=== PATIENT | male | born 1960 | race Caucasian/White ===

== ENCOUNTER → 2017-04-28 | Outpatient (CLI) | payer BC ==
--- NOTE | 2017-04-28 13:51 | XR ---
Abdomen HISTORY: Cystitis with hematuria, dysuria, pain Frontal view of the abdomen submitted, no comparisons Patient is status post right hip arthroplasty. Left hip shows marked osteoarthritic change. Bone mine ralization is reduced. Lung bases are not included in the exam. No pneumoperitoneum or bowel obstruct ion evident. Possible vascular calcifications noted within the pelvis. IMPRESSION: Nonobstructive bowel gas pattern. Additional findings above.
== END | disposition home or self-care (01) ==
LOC: RADXRYALE 10:34
PROVIDERS: ATTEND Physician Assistant Medical
DX: N30.01 Acute cystitis with hematuria (principal); R30.0 Dysuria
CPT/HCPCS: 74000; 87086

== ENCOUNTER → 2018-12-29 | Outpatient (CLI) | payer OTHER ==
--- NOTE | 2018-12-29 13:58 | XR ---
Cervical spine HISTORY: Neck pain 8 views of the cervical spine Prevertebral soft tissues are within normal limits. Cervical vertebral bodies show preserved height a nd alignment. Loss of normal cervical lordosis. There is some ankylosis of apophyseal joints, osteope razia and multilevel syndesmophyte formation suggestive of underlying ankylosing spondylitis. Odontoid view, C7-T1 visualization is limited. Oblique images not optimal to evaluate for foraminal encroachme nt on the left, there is foraminal encroachment on the right at C4-5. IMPRESSION: Correlate for possible ankylosing spondylitis. Suspect underlying foraminal encroachment.
--- NOTE | 2018-12-29 14:00 | XR ---
Lumbosacral spine HISTORY: Low back pain 5 views of the lumbosacral spine No comparisons There is no evident spondylolysis or spondylolisthesis. There is multilevel spondylosis. Loss of disc height present L5-S1 with associated vacuum phenomenon. Vascular calcifications are noted incidental ly. Sclerosis noted in the posterior elements. Bone mineralization is mildly reduced. IMPRESSION: Degenerative disc disease, facet arthropathy. Osteopenia.
== END | disposition home or self-care (01) ==
LOC: RADXRWHC 12:22
PROVIDERS: ATTEND Family Medicine
DX: M51.36 Other intervertebral disc degeneration, lumbar region (principal); M46.96 Unspecified inflammatory spondylopathy, lumbar region; M85.88 Other specified disorders of bone density and structure, other site; M54.2 Cervicalgia
CPT/HCPCS: 72050; 72110

== ENCOUNTER → 2021-03-29 | Outpatient (CLI) | payer OTHER ==
--- NOTE | 2021-03-30 10:45 | XR ---
EXAMINATION TYPE: XR Hip Complete LT DATE OF EXAM: 03/30/2021 COMPARISON: NONE HISTORY: Pain TECHNIQUE: 2 views submitted FINDINGS: There is no evidence of erosive change or acute fracture. Diffuse osteopenia. Postsurgical change lef t hip with moderate to severe arthropathy of the hip joint. Degenerative change lower lumbar spine. IMPRESSION: 1. Diffuse osteopenia with severe arthropathy of the left hip. 2. Postsurgical change left femur.
--- NOTE | 2021-03-30 10:46 | XR ---
EXAMINATION TYPE: XR pelvis AP view DATE OF EXAM: 03/30/2021 COMPARISON: NONE HISTORY: Pain The osseous structures are intact and the joint spaces are preserved. No acute fracture is seen. Vi sualized bowel gas pattern is nonspecific. Postsurgical change of bilateral hip with severe arthropa thy left hip joint. Diffuse osteopenia. Mild arthropathy of the SI joints. IMPRESSION: 1. Postsurgical changes. 2. Diffuse osteopenia. 3. Severe arthropathy of the left hip joint.
== END | disposition home or self-care (01) ==
LOC: RADXRYALE 14:56
PROVIDERS: ATTEND Physician Assistant
DX: M16.12 Unilateral primary osteoarthritis, left hip (principal); M85.852 Other specified disorders of bone density and structure, left thigh; Z98.890 Other specified postprocedural states
CPT/HCPCS: 72170; 73502

== ENCOUNTER → 2023-08-05 | Outpatient (CLI) | payer OTHER ==
--- NOTE | 2023-08-05 13:03 | CA ---
Transthoracic Echo Report Name: Yves Johnston Age: 63 Gender: M : 1960 Exam Date: 08/05/2023 10:42 Exam Location: [place] [facility] Ht (in): 70 Wt (lb): 165 Ordering Physician: Jimenez Lee DO Attending/Referring Phys: Amy Munguai PAC Body Fitter Tiffany Mathews RDCS Procedure CPT: Indications: R07.9 CHEST PAIN I10 HTN Cardiac Hx: Technical Quality: Fair Contrast 1: Total Dose (mL): Contrast 2: Total Dose (mL): MEASUREMENTS (Male / Female) Normal Values 2D ECHO LV Diastolic Diameter PLAX 4.2 cm 4.2 - 5.9 / 3.9 - 5.3 cm LV Systolic Diameter PLAX 2.7 cm IVS Diastolic Thickness 1.6 cm 0.6 - 1.0 / 0.6 - 0.9 cm LVPW Diastolic Thickness 1.4 cm 0.6 - 1.0 / 0.6 - 0.9 cm LV Relative Wall Thickness 0.7 RV Internal Dim ED PLAX 3.2 cm LA Systolic Diameter LX 3.4 cm 3.0 - 4.0 / 2.7 - 3.8 cm LA Volume 59.0 cm??? 18 - 58 / 22 - 52 cm??? LA Volume Index 30.6 cm???/m??? 16 - 28 cm???/m??? M-MODE Aortic Root Diameter MM 3.3 cm MV E Point Septal Separation 0.5 cm AV Cusp Separation MM 2.3 cm DOPPLER AV Peak Velocity 129.3 cm/s AV Peak Gradient 6.7 mmHg MV Area PHT 2.8 cm??? Mitral E Point Velocity 84.1 cm/s Mitral A Point Velocity 95.7 cm/s Mitral E to A Ratio 0.9 MV Deceleration Time 269.1 ms MV E' Velocity 5.9 cm/s Mitral E to MV E' Ratio 14.3 FINDINGS Left Ventricle Left ventricular ejection fraction is estimated at 60-65 %. Left ventricular cavity size normal. Moderate concentric left ventricular hypertrophy. Right Ventricle Normal right ventricular size. Unable to estimate the right ventricular systolic pressure. Right Atrium Normal right atrial size. Left Atrium Mildly increased left atrial volume. Mitral Valve Structurally normal mitral valve. No mitral stenosis. No evidence for mitral valve prolapse. Aortic Valve Trileaflet aortic valve. No aortic valve stenosis or regurgitation. Tricuspid Valve Structurally normal tricuspid valve. No tricuspid regurgitation. Pulmonic Valve Structurally normal pulmonic valve. Mild pulmonic regurgitation. Pericardium No pericardial effusion Aorta Normal size aortic root and proximal ascending aorta. CONCLUSIONS Left ventricular ejection fraction 60-65% Moderate concentric left ventricular hypertrophy No mitral regurgitation Previewed by: Dr. Benjamin Carr DO (Electronically Signed) Final Date: 05 August 2023 13:03
--- NOTE | 2023-08-05 13:48 | CA ---
Stress Echo Report Yves Johnston Age: 63 Gender: M : 1960 Exam Date: 08/05/2023 11:46 Exam Location: [place] [facility] Ht (in): 70 Wt (lb): 165 Ordering Physician: Jimenez Lee DO Referring Physician: Amy Munguia PAC Delivery Tech: Tiffany Mathews RDCS Technologist Procedure CPT: Indication: R07.9 CHEST PAIN I10 HTN ICD-9 Codes: Rhythm: Patient History: CP, CRUZ, PALP, HTN, FAMILY HX Cardiac Medications: PERCOCET, TAMLOSIN, DILUXAPINE, LISINOPRIL, AMLODIPINE, XANAX Medications in past 24 hours: Contrast: N/A Stress Results Protocol: Khris Total dose(mL): Exercise Duration (min:sec): 5:[address] Depression (mm): Angina Score: Stone Score: METS: 7.0 Resting HR: 93 Resting BP: 132 / 52 Peak HR: 157 Peak BP: 190 / 47 Max Predicted HR: 158 99 % Max Predicted HR Target HR: 134 Double Product: 10610 Stress Summary: BP Response: Reason for Termination: Maximal effort/unable to continue, Reached target heart rate or work-load Cardiac Symptoms: ECG Analysis Resting ECG: Stress ECG: Arrhythmia: Echo Analysis Resting Echo: Peak Echo Analysis: MEASUREMENTS (Male/Female) Normal Values CONCLUSIONS Stress test initially ordered as a stress EKG however abnormal baseline EKG and therefore recommended changing to stress echo. Patient underwent exercise stress echo with a Khris protocol treadmill stress test. Patient exercised into Stage 2 for a total of minutes and 5 seconds reaching a total of 7.0 METS. Patient's maximum heart rate was and 57 which represented 99% age-predicted maximum heart rate. Stress EKG portion: At baseline patient's EKG showed normal sinus rhythm, normal axis, LVH with strain pattern with diffuse T-wave inversions V3 through V6, 1 and aVL. At peak exercise, EKG showed no significant change from baseline. Stress echo portion: 2-D echocardiogram was performed in the parasternal long, personal short, apical 2 and apical four-chamber views at rest, peak exercise and in recovery. At baseline, echocardiogram showed left ventricular ejection fraction 55 % without wall motion abnormalities. With peak exercise, echocardiogram shows improvement in left ventricular ejection fraction, increase contractility, decrease in left ventricular end systolic dimension without wall motion abnormalities consistent with a normal response to exercise. Conclusions: 1. Nondiagnostic stress EKG portion secondary baseline EKG abnormalities 2. Normal stress echo portion without inducible ischemia 3. Poor exercise capacity. 5. Normal left ventricular EF 55% Dr. Benjamin Carr DO (Electronically Signed) Final Date: 05 August 2023 13:47
== END | disposition home or self-care (01) ==
LOC: RADNMMAIN 10:15
PROVIDERS: ATTEND Family Medicine
DX: I11.9 Hypertensive heart disease without heart failure (principal); R07.9 Chest pain, unspecified; R00.2 Palpitations
CPT/HCPCS: 93306; 93351

== ENCOUNTER → 2024-04-26 | Outpatient (CLI) | payer OTHER, MEDICARE ==
--- NOTE | 2024-04-26 13:06 | CT ---
EXAMINATION TYPE: CT brain wo con DATE OF EXAM: 04/26/2024 COMPARISON: None HISTORY: 63-year-old male SYNCOPE AND COLLAPSE. PT STATES HE HAS A TUMOR AFFECTING HIS BP. NO CONTRAS T NO PRIOR TECHNIQUE: Examination was done in axial plane without intravenous contrast. Coronal and sagittal r econstructions performed. CT DLP: 1198.70 mGycm Automated exposure control for dose reduction was used. FINDINGS: There is no evidence of acute intracranial hemorrhage, acute ischemic changes, mass, mass-effect, or extra-axial fluid collection. There is no effacement of cerebral sulci or basal subarachnoid cister ns. There is no hydrocephalus. There is no midline shift. Winston-white matter distinction is preserv ed. Leftward nasal septal deviation. Paranasal sinuses and mastoid air cells are well pneumatized. Orbits and globes are intact. There appears to be degenerative bony ankylosis across the craniocervical articulation and even acros s the C1 dens articulation. IMPRESSION: 1. No acute intracranial abnormality seen. 2. 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 [facility], , 04/26/2024 1:03 PM
== END | disposition home or self-care (01) ==
LOC: RADCTMAIN 11:54
PROVIDERS: ATTEND Family Medicine
DX: R55 Syncope and collapse (principal); R53.1 Weakness
CPT/HCPCS: 70450